=== PATIENT | female | born 1955 | race African-American/Black ===

== ENCOUNTER 2017-10-27 06:45 | Emergency (ER) | payer MEDICAID ==
[~2017-10-27] VITALS: Ht 172.7 cm; Wt 70.5 kg
[~2017-10-27 06:45] MED LIST: ACYCLOVIR400 MG PO; ALEVE220 M1 PO; AMLODIPINE BESY10 MG PO; AMLODIPINE10 MG PO; ANUCORT-HC25 MG RE; ASPIRIN EC81 MG PO; ATRIPLA PO; AVELOX400 MG OR; BACTRIM DS1 TAB PO; CETIRIZINE10 MG OR; CIMETIDINE400 MG OR; CIPRO500 MG PO; COLCRYS0.6 MG OR; CYCLOBENZAPR10 MG PO; DIOVAN HCT160 MG/25 OR; DIOVAN HCT320 MG/25 PO; DIOVAN320 MG OR; DIOVAN320 MG PO; DOXYCYCL HYC100 M3 OR; EXCEDRI2 OR; FAMOTIDINE20 M1 PO; FLEXERIL OR; FLEXERIL PO; GABAPENTIN300 MG PO; HUMULIN R1 M1 SC; HYZAAR1 TAB PO; IMITREX50 MG OR; INTELENCE100 MG; INTELENCE200 MG PO; ISENTRESS400 MG PO; KALETRA PO; LANTUS100 MG/ML SC; LORTAB 5 OR; LORTAB 7.5-3251 TAB PO; MACROBID100 MG OR; MEDDOSEPAK OR; METHOTREXATE2.5 MG OR; METO50TA52; METOPROL TAR25 MG PO; NAPRELAN500 MG; NAPROSYN500 MG OR; NAPROSYN500 MG PO; NEXIUM20 MG PO; NEXIUM40 M1 PO; NOVOLOG MIX SC; ONDANSETRON4 MG PO; ONE TOUCH ULTRA 100 SC; ONE TOUCH ULTRA LANC SC; PEPCID20 MG; PERCOCET 5/325M1 TAB PO; PHENERGAN25 MG/ML IM; PREVACID30 M2 PO; PREVPAC PO; PYRIDIUM200 MG PO; ROBITUSS12 OR; TORADOL IM; TORADOL PO; TRUVADA; TRUVADA PO; ULTRAM50 M1 OR; ULTRAM50 M1 PO; ULTRAM50 MG PO; UNKNOWN INSULIN; VALTREX1 GM OR; VICODIN1 TAB; ZOFRAN4 MG/TAB PO
[2017-10-27] MEDS ORDERED: ACYCLOVIR400 MG PO (07:13)
[2017-10-27] MEDS ORDERED: OMEPRAZOLE10 MG PO (07:15)
[2017-10-27] MEDS ORDERED: ALLOPURINOL100 MG PO (07:16)
[2017-10-27] MEDS ORDERED: ISENTRESS400 MG PO (07:17)
[2017-10-27] MEDS ORDERED: GABAPENTIN100 MG PO (07:17)
[2017-10-27] MEDS ORDERED: LANTUS SOL100 UNIT/M SC (07:22)
[2017-10-27 07:59] LABS: HEMOGLOBIN 14.8 g/dl (12.0-16.0); IMMATURE GRANULOCYTES 0.4 % (0.0-1.0); MEAN CELL VOLUME 82.6 fL CALC (80.0-100.0); MEAN CORPUSCULAR HGB 27.2 pG CALC (26.0-32.0); MEAN CORPUSCULAR HGB CONC 32.9 g/L CALC (32.0-36.0); NEUT# 4.27 thou/uL (2.00-7.15); RED BLOOD COUNT 5.45 mill/uL (4.20-5.60); RED CELL DISTRI WIDTH 13.1 % (11.5-15.5)
[2017-10-27 08:09] LABS: ALBUMIN 4.1 g/dL (3.2-5.0); ALKALINE PHOSPHATASE 236 u/l (38-126); ANION GAP 13 (6-22 (CALC)); BILIRUBIN, TOTAL 0.3 mg/dL (0.0-1.4); BUN 11 mg/dL (8-23); BUN/CREATININE RATIO 19 (12-20 (CALC)); CARBON DIOXIDE 26 mmol/l (22-30); CHLORIDE 101 mmol/l (95-108); CREATININE 0.6 mg/dL (0.5-1.0); GFR > 60 ML/MIN (>=60 (CALC)); GFR FOR AFR.AMER. > 60 ML/MIN (>=60 (CALC)); LIPASE 189 u/l (23-300); POTASSIUM 4.5 mmol/l (3.5-5.1); SGOT/AST 19 u/l (9-36); SGPT/ALT 32 u/l (11-66); SODIUM 136 mmol/l (137-146); TOTAL PROTEIN 8.4 g/dL (6.3-8.2)
[2017-10-27 10:14] LABS: URINE BILIRUBIN - DIPSTICK NEGATIVE (NEGATIVE); URINE BLOOD DIPSTICK NEGATIVE (NEGATIVE); URINE COLOR YELLOW; URINE GLUCOSE - DIPSTICK >=1000 mg/dL (NEGATIVE); URINE KETONE NEGATIVE (NEGATIVE); URINE LEUK ESTERASE NEGATIVE (NEGATIVE); URINE NITRITE - DIPSTICK NEGATIVE (Negative); URINE PH 5.5 (4.5-8.0); URINE PROTEIN - DIPSTICK NEGATIVE (NEG-TRACE); URINE UROBILINOGEN - DIPSTICK 0.2 E.U./dL (0.2)
[2017-10-27 10:17] LABS: URINE CLARITY CLEAR
[2017-10-27] MEDS ORDERED: EQ MAGNESIUM CI1 SOL PO (10:20)
[2017-10-27 10:30] VITALS: BP 163/77
== END 2017-10-27 10:42 | disposition home or self-care (01) | DRG 392 ==
LOC: ED 06:45
PROVIDERS: Family Medicine
DX: R10.11 Right upper quadrant pain (principal); I10 Essential (primary) hypertension; E11.9 Type 2 diabetes mellitus without complications; Z21 Asymptomatic human immunodeficiency virus [HIV] infection status; M19.90 Unspecified osteoarthritis, unspecified site
CPT/HCPCS: Q9967